=== PATIENT | female | born 1990 | race Caucasian/White ===

== ENCOUNTER 2018-11-05 13:22 | Emergency (ER) | payer SELFPAY ==
--- NOTE | 2018-11-05 13:42 | PDOC ---
Rapid Medical Evaluation Time Seen by Provider: 11/05/18 13:39 Medical Evaluation: Allergies Allergy/AdvReac Type Severity Reaction Status Date / Time No Known Allergies Allergy Verified 09/13/17 20:55 11/05/18 13:39 I have performed a brief in-person evaluation of this patient. The patient presents with a chief complaint of: "My liver throbs." +Hep B surface Ag Pertinent physical exam findings: Abd SNTND. I have ordered the following: labs, urine The patient will proceed to the ED for further evaluation. Discharge Disposition - Diagnosis Abdominal pain - Referrals - Patient Instructions - Post Discharge Activity
[2018-11-05 13:44] VITALS: BMI 20.5
[2018-11-05 14:26] LABS: BASO % 0.8 % (0-2.0); EOS % 1.6 % (0-4.5); HEMATOCRIT 40.5 % (32.4-45.2); HEMOGLOBIN 13.7 GM/dL (10.7-15.3); LYMPH % 29.6 % (8-40); MCH 28.8 pg (25.7-33.7); MCHC 33.9 g/dl (32.0-36.0); MEAN CELL VOLUME 84.8 fl (80-96); MONO % 14.3 % (3.8-10.2); NEUT % 53.7 % (42.8-82.8); PLATELET COUNT 147 K/MM3 (134-434); RBC 4.77 M/mm3 (3.60-5.2); RDW 12.7 % (11.6-15.6); WHITE BLOOD COUNT 2.4 K/mm3 (4.0-10.0)
[2018-11-05 14:27] LABS: URINE APPEARANCE CLEAR; URINE BILIRUBIN NEGATIVE (<2.0 mg/dL); URINE COLOR YELLOW; URINE GLUCOSE (UA) NEGATIVE (NEGATIVE); URINE KETONE NEGATIVE (NEGATIVE); URINE LEUK ESTERASE NEGATIVE (NEGATIVE); URINE NITRITE NEGATIVE (NEGATIVE); URINE PROTEIN 1+ (NEGATIVE)
[2018-11-05 14:33] LABS: EPI CELLS RARE /HPF (FEW); URINE BACTERIA FEW /hpf (NONE SEEN); URINE MUCUS MODERATE
[2018-11-05 15:36] LABS: ALBUMIN 4.3 g/dl (3.4-5.0); ALK PHOS 71 U/L (45-117); ANION GAP 4 MMOL/L (8-16); BILIRUBIN,TOTAL 0.7 mg/dL (0.2-1); BLOOD UREA NITROGEN 12 mg/dL (7-18); CALCIUM 9.3 mg/dL (8.5-10.1); CHLORIDE 104 mmol/L (98-107); CO2 31 mmol/L (21-32); CREATININE 0.8 mg/dL (0.55-1.3); GLUCOSE,RANDOM 99 mg/dL (74-106); LIPASE 155 U/L (73-393); POTASSIUM 3.6 mmol/L (3.5-5.1); SGOT/AST 15 U/L (15-37); SGPT/ALT 20 U/L (13-61); SODIUM 138 mmol/L (136-145); TOT PROT 7.7 g/dl (6.4-8.2)
--- NOTE | 2018-11-05 18:11 | PDOC ---
History of Present Illness - General Chief Complaint: Pain Stated Complaint: PAIN IN LIVER, abnormal hep b result Time Seen by Provider: 11/05/18 13:39 History Source: Patient Exam Limitations: No Limitations - History of Present Illness Initial Comments: Pt is a 28 yo F, with no known PMH, who is presenting for evaluation after a positive Hepatitis B test with RUQ abdominal pain x2 days. 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 Pt states over the past 2 days, she has noticed intermittent crampy RUQ abdominal pain, which lasts for a few minutes. She has not taken any OTC for this pain, and there are no alleviating or exacerbating factors. She has also noticed "bloating and swelling of her liver" over this same timeframe. Pt denies any fevers/chills, headache, vision changes, syncope, chest pain, palpitations, SOB, nausea/vomiting, urinary symptoms, diarrhea/constipation, or leg swelling. Social: Pt smokes 2-3 cigarettes per day. Pt denies alcohol or drug use. Pt denies any recent travel or sick contacts. Surgical: no relevant history. Family: no relevant history. 11/07/18 18:04 Past History - Travel Traveled outside of the country in the last 30 days: No Close contact w/someone who was outside of country & ill: No - Past Medical History Allergies/Adverse Reactions: Allergies Allergy/AdvReac Type Severity Reaction Status Date / Time No Known Allergies Allergy Verified 11/05/18 13:44 Home Medications: Ambulatory Orders No Home Medications 0 dose .ROUTE UTDICT 12/07/13 Acetaminophen [Tylenol -] 1,000 mg PO ASDIR 09/13/17 Amoxicillin - [Amoxicillin 250mg Capsule -] 250 mg PO ONCE 09/13/17 Clindamycin [Cleocin -] 150 mg PO Q8H #21 capsule 09/13/17 Clindamycin [Cleocin -] 300 mg PO TID #21 capsule 09/13/17 Asthma: No Cancer: No Cardiac Disorders: No COPD: No Diabetes: No HTN: No Seizures: No Thyroid Disease: No - Surgical History Abdominal Surgery: No GI Surgery: No - Suicide/Smoking/Psychosocial Hx Smoking Status: Yes Smoking History: Current every day smoker Have you smoked in the past 12 months: No Number of Cigarettes Smoked Daily: 2 Information on smoking cessation initiated: Yes 'Breaking Loose' booklet given: 02/25/12 Hx Alcohol Use: No Drug/Substance Use Hx: No Hx Substance Use Treatment: No Review of Systems - Review of Systems Able to Perform ROS?: Yes Is the patient limited Mosotho proficient: No Constitutional: Yes: Weight Stable. No: Chills, Diaphoresis, Fever, Loss of Appetite HEENTM: No: Recent change in vision, Nose Congestion, Throat Pain Respiratory: No: Cough, Orthopnea, Shortness of Breath Cardiac (ROS): No: Chest Pain, Edema, Irregular Heart Rate, Lightheadedness, Palpitations, Syncope, Chest Tightness ABD/GI: Yes: See HPI, Abdominal Distended (per pt), Abdominal cramping. No: Blood Streaked Bowels, Constipated, Diarrhea, Nausea, Poor Appetite, Poor Fluid Intake, Vomiting : No: Burning, Dysuria, Frequency, Flank Pain, Hematuria, Pain, Urgency Musculoskeletal: No: Back Pain, Joint Pain Integumentary: No: Change in Color, Flushing, Rash Neurological: No: Headache, Weakness, Unsteady Gait, Ataxia, Dizziness Psychiatric: Yes: Anxiety (pt feeling anxious since being told of results, and says she "gets anxious sometimes"). No: Sleep Pattern Change, Change in Appetite Endocrine: No: Increased Urine, Change in Weight Hematologic/Lymphatic: No: Anemia, Blood Clots, Easy Bleeding, Easy Bruising All Other Systems: Reviewed and Negative *Physical Exam - Vital Signs Last Vital Signs Temp Pulse Resp BP Pulse Ox 98.4 F 88 18 155/110 H 100 11/05/18 13:41 11/05/18 13:41 11/05/18 13:41 11/05/18 13:41 11/05/18 13:41 - Physical Exam General Appearance: Yes: Nourished, Appropriately Dressed. No: Apparent Distress HEENT: positive: EOMI, FRANCISCO JAVIER, Normal Voice, Symmetrical, Pharynx Normal, Scleral Icterus (R) (mild), Scleral Icterus (L) (mild), Hearing Grossly Normal. negative: Normal ENT Inspection, Muffled/Hoarse voice, Pharyngeal Erythema, Tonsillar Exudate, Tonsillar Erythema, Nasal Congestion Neck: positive: Trachea midline, Normal Thyroid, Supple. negative: Tender, Rigid, Lymphadenopathy (R), Lymphadenopathy (L) Respiratory/Chest: positive: Lungs Clear, Normal Breath Sounds. negative: Chest Tender, Respiratory Distress, Accessory Muscle Use, Crackles, Wheezing Cardiovascular: positive: Regular Rhythm, Regular Rate, S1, S2. negative: Edema , JVD, Murmur Vascular Pulses: Carotid (R): 4+, Carotid (L): 4+ Gastrointestinal/Abdominal: positive: Normal Bowel Sounds, Flat, Soft. negative : Tender, Organomegaly, Pulsatile Mass, Distended, Guarding, Rebound, Hepatomegaly, Spleenomegaly Rectal Exam: positive: deferred Lymphatic: negative: Adenopathy, Tenderness Musculoskeletal: positive: Normal Inspection. negative: CVA Tenderness Extremity: positive: Normal Capillary Refill, Normal Inspection, Normal Range of Motion, Pelvis Stable. negative: Tender Integumentary: positive: Normal Color, Dry, Warm. negative: Jaundice, Clammy, Diaphoresis, Petechiae, Rash, Ecchymosis Neurologic: positive: bankruptcy legal assistant II-XII NML intact, Fully Oriented, Alert, Normal Response, Motor Strength 5/5. negative: Normal Mood/Affect (anxious) Moderate Sedation - Procedure Monitoring Vital Signs: Procedure Monitoring Vital Signs Temperature 98.4 F 11/05/18 13:41 Pulse Rate 88 11/05/18 13:41 Respiratory Rate 18 11/05/18 13:41 Blood Pressure 155/110 H 11/05/18 13:41 O2 Sat by Pulse Oximetry (%) 100 11/05/18 13:41 ED Treatment Course - LABORATORY CBC & Chemistry Diagram: 11/05/18 14:04 11/05/18 14:04 - ADDITIONAL ORDERS Additional order review: Laboratory Results 11/05/18 11/05/18 14:13 14:04 Sodium 138 Potassium 3.6 Chloride 104 Carbon Dioxide 31 Anion Gap 4 L BUN 12 Creatinine 0.8 Creat Clearance w eGFR > 60 Random Glucose 99 Calcium 9.3 Total Bilirubin 0.7 AST 15 ALT 20 Alkaline Phosphatase 71 Total Protein 7.7 Albumin 4.3 Lipase 155 Urine Color Yellow Urine Appearance Clear Urine pH 7.0 Ur Specific [place] 1.020 Urine Protein 1+ H Urine Glucose (UA) Negative Urine Ketones Negative Urine Blood 3+ H Urine Nitrite Negative Urine Bilirubin Negative Urine Urobilinogen 2.0 H Ur Leukocyte Esterase Negative Urine WBC (Auto) 2 Urine RBC (Auto) 151 Ur Epithelial Cells Rare Urine Bacteria Few Urine Mucus Moderate 01/09/19 14:04 RBC 4.77 MCV 84.8 MCHC 33.9 RDW 12.7 MPV 9.0 Neutrophils % 53.7 D Lymphocytes % 29.6 D Monocytes % 14.3 H D Eosinophils % 1.6 D Basophils % 0.8 D Medical Decision Making - Medical Decision Making Pt was seen at bedside, also will be seen by attending Dr. Garnica. Pt presenting for evaluation after a positive Hepatitis B test with RUQ abdominal pain x2 days. 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 Pt states over the past 2 days, she has noticed intermittent crampy RUQ abdominal pain, which lasts for a few minutes. She has not taken any OTC for this pain, and there are no alleviating or exacerbating factors. She has also noticed "bloating and swelling of her liver" over this same timeframe. Pt denies any fevers/chills, headache, vision changes, syncope, chest pain, palpitations, SOB , nausea/vomiting, urinary symptoms, diarrhea/constipation, or leg swelling. Pt afebrile, vitals stable. PE showed anxious pt. Mild scleral icterus, no cutaneous jaundice. No abdominal distension or tenderness, no hepatomegaly, no rebound, no guarding. Considering acute vs chronic hepatitis vs lab mistake/incorrect lab reading vs anxiety vs nephrolithiasis vs pancreatitis. Ordered work-up including CBC, CMP, UA, lipase, hepatitis panel, and US of RUQ/ kidneys. Pt denying any pain control at this point. Will continue to reassess pt and monitor for symptomatic improvement. 11/05/18 18:25 CBC: WBC 2.4, H/H stable -- due to neutropenia, added-on HIV test. CMP: WNL, lipase 155 UA: 3+ blood, 150 RBCs, leuk esterase negative. Pt has no urinary complaints. Pt pending HIV test and abdominal US. Pt signed out to next resident team. Explained presentation, ED course, any pending results, and needed interventions to resident Dr. Woods. 11/05/18 19:16 11/07/18 17:59 *DC/Admit/Observation/Transfer Diagnosis at time of Disposition: Abdominal pain Qualifiers: Abdominal location: right upper quadrant Qualified Code(s): R10.11 - Right upper quadrant pain - Discharge Dispostion Condition at time of disposition: Stable Decision to Admit order: No - Referrals Referrals: [facility] [place] [Provider Group] Efrem Ayala MD [Primary Care Provider] - - Patient Instructions Printed Discharge Instructions: DI for Abdominal Pain-Adult Additional Instructions: You came into the ED for abdominal pain. Labs and Ultrasound imaging were normal. The hepatitis B panel is still pending. While you were here, we found your blood pressure was elevated. Follow-up with a primary care doctor this week to discuss this ED visit and to further evaluate your symptoms and high blood pressure reading. You have been referred to the [facility]. Call and make an appointment at the number provided. Immediate medical attention is required if you have: you develop worsening pain , high fevers, persistent nausea, vomiting, or any new or concerning symptoms. If you think you are having an emergency, call for emergency medical services or present to the emergency department right away. - Post Discharge Activity Forms/Work/School Notes: Back to Work
--- NOTE | 2018-11-05 18:42 | PDOC ---
Attending Attestation - HPI HPI: 11/05/18 21:05 The patient is a 28 year old with no past medical history here today for evaluation after positive hepatitis B test. Patient denies any pain at this time. Patient denies headache, lightheadedness. Denies fever, chills. Denies chest pain, shortness of breath. Denies nausea, vomiting, diarrhea, abdominal pain. Allergies: NKA PCP: Efrem Ayala - Medical Decision Making 11/05/18 21:05 Documentation prepared by VALENTINE Aguilar, acting as medical services coordinator for Everett Garnica MD. <Luis Qiu - Last Filed: 11/05/18 21:05> - Resident Resident Name: Jana Guo - ED Attending Attestation I have performed the following: I have examined & evaluated the patient, The case was reviewed & discussed with the resident, I agree w/resident's findings & plan, Exceptions are as noted - Physicial Exam PE: 11/05/18 21:00 Patient is awake and alert, well-nourished, anxious appearing, in no distress Normocephalic, atraumatic PERRLA, EOMI, no scleral icterus CTA RRR Abdomen soft, nondistended, nontender, bowel sounds present all 4 quadrants, no CVA tenderness bilaterally - Medical Decision Making 11/05/18 21:00 Patient is a 28-year-old female who presents to the ER with intermittent right upper quadrant pain since being told that she tested positive for hepatitis B during a routine work-related physical. In the ER, patient is awake and alert, hypertensive, anxious appearing, with no evidence of acute abdomen. CBC reveal leukopenia. CMP reveals normal LFTs. urinalisys shows hematuria. Right upper quadrant ultrasound shows no evidence of hepatomegaly or any other acute pathology. Hepatitis panel repeated and will be followed up. pt is hiv negative. We'll administer Xanax-0.25 mg by mouth for anxiety. Will discharge. 11/05/18 22:08 Patient remains hypertensive. She is also reporting vaginal spotting. BUN/ creatinine is within normal limit. Urinalysis reveals 1+ proteinuria which may be related to vaginal bleeding. There is no indication for and organ damage at this time and no indication for initiation of antihypertensive therapy in the ED. however, patient instructed to follow-up promptly in the medical clinic for evaluation of elevated blood pressure and follow-up to her positive hepatitis testing. <Everett Garnica - Last Filed: 11/05/18 22:09>
--- NOTE | 2018-11-05 20:10 | PDOC ---
*Physical Exam - Vital Signs Last Vital Signs Temp Pulse Resp BP Pulse Ox 98.4 F 88 18 155/110 H 100 11/05/18 13:41 11/05/18 13:41 11/05/18 13:41 11/05/18 13:41 11/05/18 13:41 ED Treatment Course - LABORATORY CBC & Chemistry Diagram: 11/05/18 14:04 11/05/18 14:04 - ADDITIONAL ORDERS Additional order review: Laboratory Results 11/05/18 11/05/18 14:13 14:04 Sodium 138 Potassium 3.6 Chloride 104 Carbon Dioxide 31 Anion Gap 4 L BUN 12 Creatinine 0.8 Creat Clearance w eGFR > 60 Random Glucose 99 Calcium 9.3 Total Bilirubin 0.7 AST 15 ALT 20 Alkaline Phosphatase 71 Total Protein 7.7 Albumin 4.3 Lipase 155 Urine Color Yellow Urine Appearance Clear Urine pH 7.0 Ur Specific [place] 1.020 Urine Protein 1+ H Urine Glucose (UA) Negative Urine Ketones Negative Urine Blood 3+ H Urine Nitrite Negative Urine Bilirubin Negative Urine Urobilinogen 2.0 H Ur Leukocyte Esterase Negative Urine WBC (Auto) 2 Urine RBC (Auto) 151 Ur Epithelial Cells Rare Urine Bacteria Few Urine Mucus Moderate 11/05/18 14:04 RBC 4.77 MCV 84.8 MCHC 33.9 RDW 12.7 MPV 9.0 Neutrophils % 53.7 D Lymphocytes % 29.6 D Monocytes % 14.3 H D Eosinophils % 1.6 D Basophils % 0.8 D Medical Decision Making - Medical Decision Making Patient reports feeling better. No signs of end-organ damage. 11/05/18 21:54 Patient found to be hypertensive. She reports anxiety related to this positive hepatitis b result, among other personal issues. Small dose of xanax given while in the ED. Patient endorses relief of anxiety. RUQ US: Normal abdominal sonogram test negative HIV test negative Referred for follow-up with [facility] Patient discharged 11/06/18 06:46 *DC/Admit/Observation/Transfer Diagnosis at time of Disposition: Abdominal pain - Discharge Dispostion Disposition: HOME Condition at time of disposition: Stable - Referrals Referrals: Efrem Ayala MD [Primary Care Provider] - [facility] [place] [Provider Group] - Patient Instructions Printed Discharge Instructions: DI for Abdominal Pain-Adult Additional Instructions: You came into the ED for abdominal pain. Labs and Ultrasound imaging were normal. The hepatitis B panel is still pending. While you were here, we found your blood pressure was elevated. Follow-up with a primary care doctor this week to discuss this ED visit and to further evaluate your symptoms and high blood pressure reading. You have been referred to the [facility]. Call and make an appointment at the number provided. Immediate medical attention is required if you have: you develop worsening pain , high fevers, persistent nausea, vomiting, or any new or concerning symptoms. If you think you are having an emergency, call for emergency medical services or present to the emergency department right away. - Post Discharge Activity Forms/Work/School Notes: Back to Work
[2018-11-05] MEDS ORDERED: ALPRAZolam 0.25 MG TABLET PO ONE (20:56)
[2018-11-05] MEDS ORDERED: ALPRAZolam 0.25 MG TABLET ONE (21:22)
[2018-11-05 22:13] VITALS: BP 153/110; PULSE 66; TEMP 97.4
--- NOTE | 2018-11-06 12:44 | EKG ---
Test Reason : Blood Pressure : / mmHG Vent. Rate : 085 BPM Atrial Rate : 085 BPM P-R Int : 124 ms QRS Dur : 082 ms QT Int : 356 ms P-R-T Axes : 071 054 057 degrees QTc Int : 423 ms NORMAL SINUS RHYTHM POSSIBLE LEFT ATRIAL ENLARGEMENT BORDERLINE ECG NO PREVIOUS ECGS AVAILABLE Confirmed by FRANCIE PALAFOX, YOLANDE ([id number]) on 11/06/2018 12:44:18 PM Referred By: Confirmed By:YOLANDE MARMOLEJO MD
[2018-11-07 02:15] LABS: HEP.C VIRUS AB 0.2 s/co ratio (0.0-0.9)
[2018-11-08 23:08] LABS: HEP B CORE AB, IGM Negative (Negative); HEP B CORE AB, TOT Positive (Negative)
== END 2018-11-05 22:00 | disposition home or self-care (01) ==
LOC: JER 13:22
DX: R10.11 Right upper quadrant pain (principal); I10 Essential (primary) hypertension; B19.10 Unspecified viral hepatitis B without hepatic coma; F41.9 Anxiety disorder, unspecified
CPT/HCPCS: 36415; 76700-TC; 80053; 80074; 81003; 81015; 83690; 84703; 85025; 86704; 86705; 86706; 86707; 87389; 93005; 93010; 99282-25

== ENCOUNTER 2021-02-15 09:56 | Emergency (ER) | payer OTHER ==
[2021-02-15 10:06] VITALS: TEMP 98.1; BMI 24.7
[2021-02-15] MEDS ORDERED: ACETAMINOPHEN 1000 MG/100 ML VIAL (NON FORMULARY) IVPB ONE (10:26)
[2021-02-15] MEDS ORDERED: ONDANSETRON 4 MG/2 ML VIAL IVPUSH ONE (10:26)
[2021-02-15] MEDS ORDERED: SODIUM CHLORIDE 0.9% 500 ML INFUS.BAG IV ONE (10:26)
[2021-02-15] MEDS ORDERED: ACETAMINOPHEN INJECTION 100 ML IVPB ONE (10:31)
[2021-02-15] MEDS ORDERED: ONDANSETRON 4 MG/2 ML VIAL ONE (10:32)
[2021-02-15 10:55] LABS: BASO % 0.2 % (0-2.0); EOS % 0.2 % (0-4.5); HEMOGLOBIN 13.3 GM/dL (10.7-15.3); LYMPH % 18.8 % (8-40); MCH 28.9 pg (25.7-33.7); MCHC 33.1 g/dl (32.0-36.0); MEAN CELL VOLUME 87.2 fl (80-96); MEAN PLT VOLUME 8.9 fl (7.5-11.1); MONO % 6.8 % (3.8-10.2); PLATELET COUNT 164 K/MM3 (134-434); RBC 4.59 M/mm3 (3.60-5.2); RDW 12.9 % (11.6-15.6); WHITE BLOOD COUNT 6.9 K/mm3 (4.0-10.0)
[2021-02-15 11:15] LABS: CHLORIDE 104 mmol/L (98-107); SODIUM 139 mmol/L (136-145)
[2021-02-15 11:17] LABS: ANION GAP 8 MMOL/L (8-16); BLOOD UREA NITROGEN 11.7 mg/dL (7-18); CALCIUM 9.2 mg/dL (8.5-10.1); CO2 27 mmol/L (21-32); GLUCOSE,RANDOM 159 mg/dL (74-106)
[2021-02-15 11:18] LABS: ALBUMIN 4.2 g/dl (3.4-5.0)
[2021-02-15 11:20] LABS: SGPT/ALT 19 U/L (13-61)
[2021-02-15 11:21] LABS: CREATININE 0.9 mg/dL (0.55-1.3); SGOT/AST 14 U/L (15-37)
[2021-02-15 11:22] LABS: BILIRUBIN,TOTAL 0.6 mg/dL (0.2-1); TOT PROT 7.6 g/dl (6.4-8.2)
[2021-02-15 11:23] LABS: ALK PHOS 73 U/L (45-117)
[2021-02-15 13:29] VITALS: BP 114/72; PULSE 78
== END 2021-02-15 13:15 | disposition home or self-care (01) ==
LOC: JER 09:56
PROC: 3E0333Z Introduction of Anti-inflammatory into Peripheral Vein, Percutaneous Approach (ICD-10-PCS; principal; 2021-02-15)
PROC: 3E033GC Introduction of Other Therapeutic Substance into Peripheral Vein, Percutaneous Approach (ICD-10-PCS; 2021-02-15)
DX: R11.2 Nausea with vomiting, unspecified (principal)
CPT/HCPCS: 36415; 80053; 84702; 85025; 99284-25; J0131

== ENCOUNTER 2022-10-06 07:46 | Emergency (ER) | payer OTHER ==
[2022-10-06 08:18] VITALS: BP 155/81; PULSE 57; RESP 18; TEMP 98; BMI 25.0
[2022-10-06] MEDS ORDERED: morphine CARPU-JECT 4 MG/1 ML DISP.SYRIN IVPUSH ONE (08:43)
[2022-10-06] MEDS ORDERED: ONDANSETRON 4 MG/2 ML VIAL IVPUSH ONE ×2 (08:43→15:18)
[2022-10-06] MEDS ORDERED: SODIUM CHLORIDE 1,000 ML IV STA (08:43)
[2022-10-06] MEDS ORDERED: morphine SULFATE 4 MG/ML VIAL ONE (10:14)
[2022-10-06] MEDS ORDERED: ONDANSETRON 4 MG/2 ML VIAL ONE ×2 (10:15→15:39)
[2022-10-06 10:39] LABS: BASO % 0.4 % (0-2.0); HEMATOCRIT 43.7 % (32.4-45.2); HEMOGLOBIN 14.4 GM/dL (10.7-15.3); MCH 27.4 pg (25.7-33.7); MCHC 32.9 g/dl (32.0-36.0); MEAN CELL VOLUME 83.4 fl (80-96); MEAN PLT VOLUME 9.4 fl (7.5-11.1); MONO % 5.5 % (3.8-10.2); NEUT % 82.1 % (42.8-82.8); PLATELET COUNT 217 10^3/uL (134-434); RBC 5.24 M/mm3 (3.60-5.2); RDW 12.8 % (11.6-15.6); WHITE BLOOD COUNT 8.6 K/mm3 (4.0-10.0)
[2022-10-06 10:51] LABS: ALBUMIN 4.6 g/dl (3.4-5.0); CALCIUM 10.1 mg/dL (8.5-10.1)
[2022-10-06 10:55] LABS: CREATININE 0.8 mg/dL (0.55-1.3)
[2022-10-06 10:57] LABS: BILIRUBIN,TOTAL 1.1 mg/dL (0.2-1); TOT PROT 8.8 g/dl (6.4-8.2)
[2022-10-06 14:18] LABS: HCG,QUALITATIVE URINE Negative
[2022-10-06 14:35] LABS: EPI CELLS >36 /uL (0-25.1); HYALINE CASTS 2 /uL (0-3.1); PH,URINE 5.5 (5.0-8.0); URINE APPEARANCE CLEAR; URINE BACTERIA 165 /uL (0-1359); URINE BILIRUBIN NEGATIVE (NEGATIVE); URINE COLOR YELLOW; URINE GLUCOSE (UA) NEGATIVE (NEGATIVE); URINE KETONE 4+ (NEGATIVE); URINE LEUK ESTERASE NEGATIVE (NEGATIVE); URINE NITRITE NEGATIVE (NEGATIVE); URINE PROTEIN 1+ (NEGATIVE); URINE RBC 12 /uL (0-23.9); URINE WBC 17 /uL (0-25.8)
== END 2022-10-06 16:30 | disposition home or self-care (01) ==
LOC: JERFT 07:46 → JER 07:46 → JERFT 16:30
PROC: 3E033NZ Introduction of Analgesics, Hypnotics, Sedatives into Peripheral Vein, Percutaneous Approach (ICD-10-PCS; principal; 2022-10-06)
PROC: 3E033GC Introduction of Other Therapeutic Substance into Peripheral Vein, Percutaneous Approach (ICD-10-PCS; 2022-10-06)
PROC: 3E033GC Introduction of Other Therapeutic Substance into Peripheral Vein, Percutaneous Approach (ICD-10-PCS; 2022-10-06)
PROC: 3E0337Z Introduction of Electrolytic and Water Balance Substance into Peripheral Vein, Percutaneous Approach (ICD-10-PCS; 2022-10-06)
DX: K52.9 Noninfective gastroenteritis and colitis, unspecified (principal)
CPT/HCPCS: 36415; 74177-TC; 80053; 81003; 83690; 84703; 85025; 87086; 99285-25; Q9967